=== PATIENT | female | born 1990 | race African-American/Black ===

== ENCOUNTER 2019-05-20 01:50 | Emergency (ER) | payer MEDICAID, OTHER ==
[~2019-05-20] VITALS: Ht 167.6 cm; Wt 58.1 kg
--- NOTE | 2019-05-20 02:05 | NUR ---
PT BIBSELF C/O FLU LIKE SYMPTOMS FOR MULTIPLE MONTHS, PROGRESSIVELY GETTING WORSE. PT ALSO C/O WEAKNESS. PT AAOX4. RESPIRATIONS EVEN AND UNLABORED. SKIN WARM AND INTACT. VITAL SIGNS STABLE. NO ACUTE DISTRESS NOTED AT THIS TIME. WILL CONTINUE TO MONITOR
--- NOTE | 2019-05-20 02:15 | NUR ---
URINE COLLECTED AND SENT TO LAB
--- NOTE | 2019-05-20 02:17 | NUR ---
FLU SWAB COLLECTED AND SENT TO LAB
[2019-05-20] MEDS ORDERED: IBUPROFEN 600 MG TABLET PO ONE (02:19)
[2019-05-20] MEDS ORDERED: IBUPROFEN 200 MG TABLET ONE (02:21)
--- NOTE | 2019-05-20 02:22 | NUR ---
SUPERVISOR TUNNEL HEADING AT BEDSIDE FOR BLOOD DRAW
[2019-05-20 02:27] LABS: APPEARANCE,URINE Clear (CLEAR); BILIRUBIN,URINE Negative (NEGATIVE); BLOOD, URINE Small Ery/uL (NEGATIVE); COLOR,URINE Yellow (YELLOW); KETONES,URINE Negative (NEGATIVE); LEUKOCYTE ESTERASE ,URINE Negative (NEGATIVE); NITRITE, URINE Negative (NEGATIVE); PH,URINE 6.5 (5.0-8.0); PROTEIN,URINE Negative (NEGATIVE); UGLUCOSE Negative (NEGATIVE); UROBILINOGEN,URINE 0.2 EU/dL (0.2)
[2019-05-20] MEDS ORDERED: IBUPROFEN 400 MG TABLET PO ONE (02:30)
[2019-05-20 02:40] LABS: BASOPHILS # (AUTO) 0.1 /CMM (0.0-0.2); BASOPHILS % (AUTO) 0.6 % (0.0-2.0); EOSINOPHILS % (AUTO) 1.2 % (0.0-6.0); HEMATOCRIT 39 % (33-45); HEMOGLOBIN 12.7 g/dL (11.5-14.8); LYMPHOCYTES # (AUTO) 2.6 /CMM (0.8-4.8); LYMPHOCYTES % (AUTO) 26.6 % (20.0-44.0); MEAN CORPUSCULAR HGB CONC 32 g/dl (31.0-36.0); MEAN CORPUSCULAR VOLUME 81 fL (82-100); MONOCYTES # (AUTO) 0.9 /CMM (0.1-1.30); MONOCYTES % (AUTO) 9.6 % (2.0-12.0); PLATELET COUNT (AUTO) 278 /CMM (150-450); RED BLOOD CELL COUNT(AUTO) 4.86 MIL/uL (4.0-5.2); WHITE BLOOD COUNT (AUTO) 9.7 K/uL (4.3-11.0)
[2019-05-20 02:45] LABS: BACTERIA,URINE None seen /HPF (None Seen); SQUAMOUS EPITHELIAL CELL,UR Few /HPF (None Seen); WBC,URINE 0-2 /HPF (0-3)
[2019-05-20 02:49] LABS: CALCIUM, SERUM 9.7 mg/dL (8.5-10.1); CREATININE 0.6 mg/dL (0.6-1.3); POTASSIUM 4.1 mmol/L (3.5-5.1)
--- NOTE | 2019-05-20 03:00 | NUR ---
Patient discharged to home in stable condition. Written and verbal after care instructions given. Patient verbalizes understanding of instruction.Pt ambulatory with a steady gait
[2019-05-20 03:30] VITALS: BP 129/74
== END 2019-05-20 03:00 | disposition home or self-care (01) ==
LOC: ER 01:53
DX: B34.9 Viral infection, unspecified (principal); F17.200 Nicotine dependence, unspecified, uncomplicated
CPT/HCPCS: 36415; 71045-TC; 80048-TC; 81000-TC; 84703-TC; 85025-TC

== ENCOUNTER 2019-09-28 11:35 | Emergency (ER) | payer MEDICAID, OTHER ==
[~2019-09-28] VITALS: Ht 165.1 cm; Wt 57.2 kg
[2019-09-28 11:55] VITALS: BP 129/75
== END 2019-09-28 12:41 | disposition home or self-care (01) ==
LOC: ER 11:38
DX: J06.9 Acute upper respiratory infection, unspecified (principal)

== ENCOUNTER 2020-01-15 16:18 | Emergency (ER) | payer OTHER ==
[~2020-01-15] VITALS: Ht 167.6 cm; Wt 59.0 kg
--- NOTE | 2020-01-15 16:33 | NUR ---
patient states: felt "feverish" last night and sts "i coughed out mucus w/ blood this am", to ER bed 11, hooked to monitor, warm blanket provided, patient aao x 4, breathing even and unlabored. awaiting MD croft.
--- NOTE | 2020-01-15 16:40 | NUR ---
Dr Mancilla at bedside
--- NOTE | 2020-01-15 17:21 | NUR ---
Patient discharged to home in stable condition. Written and verbal after care instructions given. Patient verbalizes understanding of instruction.
[2020-01-15 17:22] VITALS: BP 132/77
== END 2020-01-15 17:23 | disposition home or self-care (01) ==
LOC: ER 16:18
DX: J06.9 Acute upper respiratory infection, unspecified (principal); F17.200 Nicotine dependence, unspecified, uncomplicated